=== PATIENT | male | born 1965 | race Caucasian/White ===

== ENCOUNTER 2021-01-10 14:04 | Inpatient (IN) | payer BC, SELFPAY ==
[~2021-01-10] VITALS: Ht 182.9 cm; Wt 110.2 kg
[2021-01-10 14:20] VITALS: BP_SYST 134
--- NOTE | 2021-01-10 14:20 | NUR ---
Patient to ER 5 to gown for evaluation. Side rails up. Report given to ROBBI Clancy
--- NOTE | 2021-01-10 14:20 | NUR ---
Pt brought in by ambulance for complaint of uncontrolled nose bleed. Pt with bilateral nose bleed. Pt is a&O x4, cap refill <3, skin is warm and dry. Pt states he had sinus surgery on 01/01/21.
--- NOTE | 2021-01-10 14:40 | NUR ---
# 18 gauge angiocath placed to rac. Use of asceptic technique. Opsite placed over site. Blood return noted. Blood for lab drawn from site. Flushed with 10 cc of normal saline. No evidence of infiltration noted. Patient tolerated well.
--- NOTE | 2021-01-10 14:40 | NUR ---
Rhino rocket placed to bilateral nares by . Pt tolerated well.
--- NOTE | 2021-01-10 14:40 | NUR ---
ER at bedside examining patient.
[2021-01-10] MEDS ORDERED: DIPHENHYDRAMINE INJ 50 MG/ML VIAL IVP ONE (14:45)
[2021-01-10] MEDS ORDERED: LORazepam 2 MG/ML VIAL IVP ONE (14:45)
[2021-01-10] MEDS ORDERED: NACL 0.9% 1,000 ML IV ONE ×2 (14:45→17:45)
--- NOTE | 2021-01-10 14:49 | NUR ---
replaced rhino rocket 7.5 to control bleeding of right nare.
--- NOTE | 2021-01-10 15:00 | NUR ---
Pt suctioning 30ml bright red blood from mouth.
--- NOTE | 2021-01-10 15:03 | NUR ---
IV Ativan and benadryl given per md order.
[2021-01-10] MEDS ORDERED: MORPHINE 4 MG INJ. 4 MG/ML VIAL IVP ONE (15:15)
--- NOTE | 2021-01-10 15:15 | NUR ---
IV morphine given per md order.
[2021-01-10 15:23] LABS: BASOPHILS # (AUTO) 0.1 K/uL (0.0-0.2); BASOPHILS % (AUTO) 0.5 % (0.0-2.0); EOSINOPHILS % (AUTO) 0.4 % (0.0-4.0); HEMATOCRIT 43.7 % (36-54); LYMPHOCYTES # (AUTO) 1.8 K/uL (1.0-5.5); LYMPHOCYTES % (AUTO) 14.6 % (20.5-51.5); MEAN CORPUSCULAR HEMOGLOBIN 32 pg (27-31); MEAN CORPUSCULAR HGB CONC 34 % (32-36); MEAN CORPUSCULAR VOLUME 92 fL (79.0-98.0); MONOCYTES # (AUTO) 0.7 K/uL (0.0-1.0); MONOCYTES % (AUTO) 5.7 % (1.7-9.3); NEUTROPHILS # (AUTO) 9.5 K/uL (1.8-7.7); NEUTROPHILS % (AUTO) 78.8 % (40.0-70.0); PLATELET COUNT (AUTO) 328 K/uL (130-430); RED BLOOD CELL COUNT(AUTO) 4.75 MIL/uL (4.2-6.2); RED CELL DISTRIBUTION WIDTH 12.9 % (9.0-15.0); WHITE BLOOD COUNT (AUTO) 12.1 K/uL (4.8-10.8)
[2021-01-10 15:31] LABS: CALCIUM 9.1 mg/dL (8.4-11.0); CREATININE 1.29 mg/dL (0.55-1.30); POTASSIUM 3.7 mmol/L (3.5-5.1)
[2021-01-10 15:39] LABS: ALBUMIN 4.1 g/dL (3.4-4.8); TOTAL BILIRUBIN 0.9 mg/dL (0.0-1.0)
--- NOTE | 2021-01-10 15:41 | NUR ---
Pt resting in bed. Bleeding controlled.
[2021-01-10] MEDS ORDERED: NOR10 PO (16:30)
[2021-01-10] MEDS ORDERED: TAMS-11 PO (16:30)
--- NOTE | 2021-01-10 16:30 | NUR ---
med req complete
[2021-01-10] MEDS ORDERED: ONDANSETRON HCL 4 MG/2 ML VIAL IVP PRN ×2 (17:30→17:45)
[2021-01-10] MEDS ORDERED: DOCUSATE SODIUM 100 MG CAPSULE PO PRN ×2 (17:30→17:45)
[2021-01-10] MEDS ORDERED: POTASSIUM CHLORIDE 20 MEQ TAB.PRT.SR PO PRN (17:45)
[2021-01-10] MEDS ORDERED: MAGNESIUM SULFATE 50 ML IV PRN (17:45)
[2021-01-10] MEDS ORDERED: ZOLPIDEM TARTRATE 5 MG TABLET PO PRN (17:45)
[2021-01-10] MEDS ORDERED: MUPIROCIN 2% TOPICAL OINTMENT 22 GM NS PRN (17:45)
--- NOTE | 2021-01-10 17:45 | NUR ---
ENT Dr. Welsh at bedside.
[2021-01-10] MEDS ORDERED: BACITRACIN 1 GM OINT TP ONE (18:05)
[2021-01-10 18:11] LABS: AMYLASE 52 U/L (0-100); FREE T4 (FREE THYROXINE) 1.2 ng/dl (0.8-1.5); LIPASE 88 U/L (73-393); PHOSPHORUS 3.8 mg/dL (2.7-4.5); THYROID STIMULATING HORMONE 1.62 uIu/mL (0.36-3.74)
--- NOTE | 2021-01-10 18:57 | NUR ---
pt up to bathroom to void dark yellow urine. walking back to bathroom pt became pale, weak and stated " he doesnt feel good". Pt put in chair and taken back to bed.
--- NOTE | 2021-01-10 18:57 | NUR ---
bilateral nares packed by ENT .
--- NOTE | 2021-01-10 18:59 | NUR ---
IV bolus infusing.
[2021-01-10 19:03] LABS: CHOLESTEROL 189 mg/dL (<200); HDL CHOLESTEROL 42 mg/dL (>45); LDL CHOLESTEROL 126 mg/dL (<100); TRIGLYCERIDES 127 mg/dL (30-150)
--- NOTE | 2021-01-10 19:22 | NUR ---
Report given to Sina MERCADO.
--- NOTE | 2021-01-10 19:22 | NUR ---
Pt resting in bed no signs of distress.
[2021-01-10] MEDS: D5/0.45 NS 1,000 ML IV SCH (19:45)
--- NOTE | 2021-01-10 20:00 | NUR ---
Assumed care of patient. Pt stable and no further nasal bleeding noted. IVF of D5 1/2 NS started at 100ml/hr. Pt waiting to a bed assignment. will continue to monitor
[2021-01-10 20:05] LABS: BARBITURATE, URINE NEGATIVE (NEG <=200); BENZODIAZEPINE, URINE POSITIVE (NEG <=150); CANNABINOID, URINE NEGATIVE (NEG <=50); COCAINE, URINE NEGATIVE (NEG <=150); METHAMPHETAMINES SCREEN,URINE NEGATIVE (NEG <=500); OPIATE, URINE POSITIVE (NEG <=100); PHENCYCLIDINE SCREEN,URINE NEGATIVE (NEG <=25); UR TRICYCLIC ANTIDEPRESSANTS NEGATIVE (NEG <=300); URINE AMPHETAMINE NEGATIVE (NEG <=500); URINE METHADONE NEGATIVE (NEG <=200); URINE OXYCODONE SCREEN NEGATIVE (NEG <=100); URINE PROPOXYPHENE SCREEN NEGATIVE (NEG <=300)
[2021-01-10 20:08] LABS: COLOR,URINE YELLOW (YELLOW)
[2021-01-10 20:09] LABS: BILIRUBIN,URINE NEGATIVE (NEGATIVE); BLOOD, URINE NEGATIVE (NEGATIVE); CLARITY/URINE CLEAR (CLEAR); GLUCOSE,URINE NEGATIVE (NEGATIVE); KETONES,URINE 1+ (NEGATIVE); LEUKOCYTE ESTERASE ,URINE NEGATIVE (NEGATIVE); NITRITE, URINE NEGATIVE (NEGATIVE); PH,URINE 5.5 (5.0-8.0); PROTEIN URINE TRACE (NEGATIVE); UROBILINOGEN,URINE 0.2 (0.2-1.0)
[2021-01-10 20:10] LABS: BACTERIA,URINE None Seen /HPF (None Seen); CALCIUM OXALATE CRYSTALS,UR 0-10 /HPF (None Seen); MUCUS,URINE None Seen /LPF (None Seen); RBC,URINE NONE SEEN /HPF (0-3); WBC,URINE 0-3 /HPF (0-3)
--- NOTE | 2021-01-10 22:00 | NUR ---
Pt resting in comfort on gurney with rails up.
--- NOTE | 2021-01-10 23:00 | NUR ---
pt remains stable and awaiting bed assignment. IVF continues to be infused
--- NOTE | 2021-01-11 00:05 | NUR ---
VSS no s/s of acute distress Resting on gurney rails up
--- NOTE | 2021-01-11 01:04 | NUR ---
VSS no s/s of acute distress No s/s of active bleeding thru nose bilat
[2021-01-11] MEDS: D5/0.45 NS 1,000 ML IV SCH (03:36)
[2021-01-11] MEDS: LORazepam 2 MG/ML VIAL IVP PRN ×2 (03:37→12:24)
--- NOTE | 2021-01-11 04:15 | NUR ---
pt c/o pain and requested some meds for pain 8/10 and discomfort. pt given ativan and relieved.
--- NOTE | 2021-01-11 06:32 | NUR ---
0630 - pt stable overnight with vital tod within normal limits. still awaiting bed placement
--- NOTE | 2021-01-11 07:14 | NUR ---
Report recieved from Brandon MERCADO.
--- NOTE | 2021-01-11 07:16 | NUR ---
Pt asleep in [facility] attached to monitor no distress noted at this time.
[2021-01-11 07:45] LABS: BASOPHILS # (AUTO) 0.1 K/uL (0.0-0.2); BASOPHILS % (AUTO) 0.5 % (0.0-2.0); LYMPHOCYTES # (AUTO) 2.1 K/uL (1.0-5.5)
[2021-01-11 08:09] LABS: EOSINOPHILS % (AUTO) 0.1 % (0.0-4.0); HEMATOCRIT 34.8 % (36-54); MEAN CORPUSCULAR HEMOGLOBIN 32 pg (27-31); MEAN CORPUSCULAR HGB CONC 34 % (32-36); MEAN CORPUSCULAR VOLUME 92 fL (79.0-98.0); MONOCYTES # (AUTO) 0.9 K/uL (0.0-1.0); MONOCYTES % (AUTO) 8.9 % (1.7-9.3); NEUTROPHILS # (AUTO) 7.4 K/uL (1.8-7.7); NEUTROPHILS % (AUTO) 70.5 % (40.0-70.0); PLATELET COUNT (AUTO) 276 K/uL (130-430); RED BLOOD CELL COUNT(AUTO) 3.77 MIL/uL (4.2-6.2); RED CELL DISTRIBUTION WIDTH 13.3 % (9.0-15.0); WHITE BLOOD COUNT (AUTO) 10.6 K/uL (4.8-10.8)
[2021-01-11 09:03] LABS: CREATININE 0.88 mg/dL (0.55-1.30); PHOSPHORUS 2.9 mg/dL (2.7-4.5); POTASSIUM 3.9 mmol/L (3.5-5.1)
--- NOTE | 2021-01-11 09:20 | NUR ---
Pt ambulated to restroom independently. Gait steady and straight.
--- NOTE | 2021-01-11 09:20 | NUR ---
Pt ate 50% of his breakfast.
--- NOTE | 2021-01-11 09:25 | NUR ---
Dr. Vital at bedside speaking with pt.
--- NOTE | 2021-01-11 10:30 | NUR ---
Pt asleep in hospital bed attached to monitor vital signs holding. No distress noted.
--- NOTE | 2021-01-11 10:42 | NUR ---
Pt ambulated to restroom gait steady and straight.
--- NOTE | 2021-01-11 11:54 | NUR ---
MRSA swab collected and sent to lab.
[2021-01-11] MEDS ORDERED: LORazepam 2 MG/ML VIAL ONE (12:27)
--- NOTE | 2021-01-11 13:04 | NUR ---
Transferred pt to medsurg unit on hospital bed ETA now.
--- NOTE | 2021-01-11 13:04 | NUR ---
Patient will be admitted to care of Dr. Shabazz. Admitted to MedSurg unit. Will go to room 116B. Belongings list completed. Complete and up to date summary report printed. SBAR report to be given at bedside with opportunity for questions.
--- NOTE | 2021-01-11 13:13 | NUR ---
Dr. Ventura at bedside examining patient.
[2021-01-11 14:58] VITALS: BP_SYST 137
[2021-01-11 15:45] VITALS: BP_SYST 134
[2021-01-12] MEDS ORDERED: MUPIROCIN 2% TOPICAL OINTMENT 22 GM NS PRN (17:45)
== END 2021-01-13 15:45 | disposition home or self-care (01) | DRG 151 ==
LOC: SED 14:04 → STU 17:37 → SMU 01-11 12:18
PROVIDERS: ADMIT General Practice; ATTEND General Practice
PROC: 099KXZZ Drainage of Nasal Mucosa and Soft Tissue, External Approach (ICD-10-PCS; principal; 2021-01-11)
DX: R04.0 Epistaxis (principal); N40.0 Benign prostatic hyperplasia without lower urinary tract symptoms; I10 Essential (primary) hypertension; E78.5 Hyperlipidemia, unspecified; E87.8 Other disorders of electrolyte and fluid balance, not elsewhere classified; Z20.822 Contact with and (suspected) exposure to COVID-19; Z88.6 Allergy status to analgesic agent; Z88.5 Allergy status to narcotic agent
CPT/HCPCS: 36415; 80048; 80053; 80061; 80307; 81000; 82150; 83036; 83690; 83735; 83880; 84100; 84439; 84443; 84484; 85025; 87081; 93005; 96361; 96374; 96375; 99285; G0378; J1200; J2060; J2270